=== PATIENT | female | born 1995 | race Caucasian/White ===

== ENCOUNTER 2017-09-07 06:09 | Day surgery (SDC) | payer OTHER ==
[2017-09-02 13:14] LABS: Urine Appearance CLOUDY; Urine Bilirubin NEGATIVE (NEG); Urine Blood NEGATIVE (NEG); Urine Color YELLOW; Urine Glucose NEGATIVE (NEG); Urine Protein NEGATIVE (NEG); Urine Specific Gravity 1.015 (1.005-1.030); Urine Urobilinogen 0.2 mg/dL (0.2-1.0); Urine pH 6.5 (5.0-7.0)
[2017-09-02 13:19] LABS: Absolute Lymphocytes (CBC) 2.2 K/uL (0.7-4.9); Absolute Monocytes 0.8 K/uL (0.1-1.3); Absolute Neutrophil 6.3 K/uL (1.8-8.0); Basophils % 0.5 % (0-1.3); Eosinophils % 1.2 % (0-4.4); Hematocrit 40.9 % (36.0-45.0); Lymphocytes % 23.5 % (15.3-44.8); MCH 30.3 pg (27.0-35.0); MCV 89.7 fL (80-100); MPV 8.2 fL (7.6-11.3); Monocytes % 8.1 % (3.3-12.3); RBC Red Blood Cell Count 4.56 M/uL (3.86-4.86)
[2017-09-02 13:22] LABS: Urine Bacteria 20-50 /HPF (<20); Urine Culture Reflex Order REFLEXED; Urine Microscopic Reflex ORDER UMIC; Urine RBC <5 /HPF (NONE SEEN)
[2017-09-02 13:32] LABS: ALT/SGPT 20 U/L (12-78); AST/SGOT 16 U/L (15-37); Albumin 3.9 g/dL (3.4-5.0); Alkaline Phosphatase 89 U/L (45-117); BUN Blood Urea Nitrogen 8 mg/dL (7-18); Bicarbonate 28 mmol/L (21-32); Bilirubin Total 0.4 mg/dL (0.2-1.0); Glucose Level 75 mg/dL (74-106); Potassium 4.1 mmol/L (3.5-5.1); Protein, Total 7.5 g/dL (6.4-8.2); Sodium Level 139 mmol/L (136-145)
--- NOTE | 2017-09-02 13:45 | RAD REPORT ---
EXAM DESCRIPTION: RAD - Chest Pa And Lat (2 Views) - 09/02/2017 1:25 pm CLINICAL HISTORY: Chest pain. COMPARISON: No comparisons FINDINGS: The lungs are clear. The heart is normal in size. No displaced fractures. IMPRESSION: No acute or concerning finding suspected.
[2017-09-07] MEDS ORDERED: CEFAZOLIN/SWI 1gm 1 GM/10 ML SYR ONE (06:23)
[2017-09-07] MEDS ORDERED: Ringers Lactate 1,000 ML IV ONE (06:23)
[2017-09-07 06:25] LABS: Specific Gravity 1.025 (1.005-1.030)
[2017-09-07] MEDS ORDERED: DEPO-MEDROL 40 MG/ML IM ONE (07:02)
[2017-09-07] MEDS ORDERED: MIDAZOLAM HCL 2 MG/2 ML INJ ONE ×2 (07:23→07:42)
[2017-09-07] MEDS ORDERED: PROPOFOL 200 MG/20 ML VIAL IV ONE (07:42)
[2017-09-07] MEDS ORDERED: FENTANYL CITR 100 MCG/2 ML ONE ×2 (07:42→08:06)
[2017-09-07] MEDS ORDERED: LIDOCAINE 1% MPF 5 ML VIAL ONE (07:42)
[2017-09-07] MEDS ORDERED: DEXAMETHASONE 10 MG/ML VIAL ONE (07:58)
[2017-09-07] MEDS ORDERED: ONDANSETRON HCL 40 MG/20 ML VIAL ONE (08:06)
[2017-09-07] MEDS ORDERED: KETOROLAC 30 MG/ML INJ ONE (08:06)
[2017-09-07] MEDS: BUPIVACAINE 0.25% PF 10 ML VIAL ONE ×2 (08:18→08:47)
[2017-09-07] MEDS: MEPERIDINE HCL 25 MG/0.5 ML ONE ×2 (09:13→09:23)
--- NOTE | 2017-09-07 09:26 | P.BOP ---
Preoperative diagnosis: right knee internal derangement, lateral meniscal pathology by MRI Postoperative diagnosis: frayed post.horn lat. menisc./lat.sub.patella Primary procedure: Juan. lat. menisec. & partial lateral release patella Histotechnologist: Papi Dodd Estimated blood loss: < 5mL Specimen: shavings Findings: patellar subluxation, shallow troch. groove, fraying post. horm lat. menisc Anesthesia: General Complications: None Implants: none Fluids & blood products: injected 10 mL Marcaine plain Transferred to: Recovery Room Condition: Good
[2017-09-07] MEDS ORDERED: CODEINE 30MG/APAP 300MG TAB ONE (10:17)
--- NOTE | 2017-09-09 21:49 | OP ---
Date of Procedure: 09/07/2017 Surgeon: Papi Dodd MD Customs Examiner: Dr. Brandon Dodd. Preoperative Diagnosis: Right knee internal derangement, lateral meniscal pathology by MRI. Postoperative Diagnoses: Frayed posterior horn lateral meniscus and lateral patellar subluxation. Procedures Performed: Diagnostic arthroscopy with partial lateral meniscectomy and partial lateral r elease for patellar subluxation. Indications: This 21-year-old female has had 8 months of persistent discomfort with popping constant ly and aching by the end of the day for her right knee. She takes ibuprofen daily to help ease infla mmation. Bending movement such as stairs, kneeling or bending cause sharp pains and discomfort. The patient's MRI scan has demonstrated fraying to the free edge posterior horn medial meniscus and othe rwise intact stabilizing tendons and ligaments. After discussing risks and benefits of operative bob atment, the patient and her mother have elected to proceed with diagnostic arthroscopy and indicated procedures. Technique: The patient was taken to the operating room and given a general anesthesia with LMA by Dr Candelario Balbuena. The patient's right knee was placed in the knee bateman with the tourniquet in position. The limb was exsanguinated with an Esmarch bandage and the tourniquet was raised to 250 mmHg after pr epping and draping of the right knee in the usual manner. The scope was inserted through the distal lateral portal and instrumentation was inserted through the distal medial portal. With inspection of the suprapatellar pouch, there were no unusual findings. Passing into the patellofemoral joint, it was noted that the patella rode high and lateral, well elevated with its midportion over the midporti on of the lateral femoral condyle. The patella could be pushed and nudged laterally to be passed the midpoint of the lateral femoral condyle with its apex. All chondral surfaces in this 21-year-old kn ee appeared to be pristine with smooth surfaces. The medial compartment was noted to have intact med ial meniscus. It was probed throughout its length. Passing into the lateral compartment, there was probing around to the posterior horn insertion. At that point, there was fraying. This did not appe ar to be a symptomatic area, but the fraying was trimmed and smoothed with the suction punch and shav er. The anterior cruciate ligament was inspected and found to be intact as was the origin of the PCL under direct visualization. Anterior and posterior drawer tests were negative for laxity. Passing into the lateral compartment, the posterior horn smoothing had been carried out. Then, shaving was c arried out along the lateral capsule adjacent to the patella. This allowed inspection of the lateral retinaculum. The arthroscopic scissors were inserted through the lateral portal as the scope was mo carlos to the medial portal. The scissors were used to partially release the lateral retinaculum 1 cm d own from the lateral edge of the patella, 1/3 of the distal lateral retinaculum was released in this manner. Then the midportion of the lateral retinaculum was treated with an 11-blade using pie-crusti ng technique to partially release the midportion of the lateral retinaculum. One of the entry points of pie-crusting was then used to divide the proximal third of the lateral retinaculum. At that poin t, the patella could be reduced and held to track in the middle of the trochlear groove. The knee wa s inspected again in all compartments. No additional pathology was noted. All instruments and scope were withdrawn, and the puncture wounds were closed with interrupted sutures of 4-0 nylon. The punc tures were injected with 10 mL of 0.25% Marcaine plain. Estimated blood loss was less than 5 mL. Fi ndings for this operation were patellar subluxation laterally with a shallow trochlear groove and fra joseph of the posterior horn of the lateral meniscus. A sterile bandage was applied using Xeroform gau ze, 4x4 flats, and an AND, followed by soft roll and an Wilian wrap. The patient was then taken to the recovery room having tolerated this procedure well. ELIZABETH/YESY Voice ID: [id number] Report ID: [id number]
== END 2017-09-07 11:15 | disposition home or self-care (01) ==
LOC: OR 06:09
PROVIDERS: ATTEND Orthopaedic Surgery
PROC: 0MNN4ZZ Release Right Knee Bursa and Ligament, Percutaneous Endoscopic Approach (ICD-10-PCS; 2017-09-07)
PROC: 0SBC4ZZ Excision of Right Knee Joint, Percutaneous Endoscopic Approach (ICD-10-PCS; principal; 2017-09-07 07:30)
DX: M23.351 Other meniscus derangements, posterior horn of lateral meniscus, right knee (principal); S83.011A Lateral subluxation of right patella, initial encounter; F41.9 Anxiety disorder, unspecified
CPT/HCPCS: 36415; 71046; 80053; 81003; 81015; 81025; 83036; 85025; 87086; 87088; 88304; J0690; J1030; J1100; J2175; J2250; J2405; J3010